=== PATIENT | female | born 1965 | race Caucasian/White ===

== ENCOUNTER 2017-08-28 08:33 | Outpatient (CLI) | payer BC, OTHER ==
--- NOTE | 2017-08-28 10:09 | ULT ---
RIGHT UPPER QUADRANT ULTRASOUND: HISTORY: Right upper quadrant pain. FINDINGS: There are cysts in the right lobe of the liver, measuring 1.3 and 1.9 cm, respectively. No intrahepa tic ductal dilatation is seen. No gallstones, gallbladder wall thickening, or pericholecystic fluid is identified. The common duct measures 4 mm in diameter. The right kidney and the visualized porti ons of the pancreas are unremarkable. No free fluid is noted in the [place] pouch. IMPRESSION: 1. Hepatic cysts. 2. No evidence of cholelithiasis. POS: [facility]
== END 2017-08-28 08:34 | disposition home or self-care (01) ==
LOC: ULT 08:33
PROVIDERS: ATTEND Internal Medicine Gastroenterology
DX: K76.89 Other specified diseases of liver (principal)
CPT/HCPCS: 76705

== ENCOUNTER 2017-10-15 08:36 | Outpatient (CLI) | payer BC ==
--- NOTE | 2017-10-15 13:20 | NM ---
HEPATOBILIARY SCAN: Date: 10/15/17 COMPARISON: None. HISTORY: Epigastric pain. TECHNIQUE: Following the intravenous administration of 4.7 mCi technetium-99m labeled mebrofenin, anterior plana r imaging is obtained over 60 minutes. Upon visualization of the gallbladder, the patient ingested 8 oz of Ensure to calculate the ejection fraction of the gallbladder. FINDINGS: There is prompt radiotracer activity within the liver on post injection imaging. Biliary activity is seen by 10-15 minutes. Gallbladder filling is seen by 25 minutes. Small bowel activity is seen by 15 minutes. Gallbladder ejection fraction is calculated at 59%. IMPRESSION: Scintigraphic evidence of cystic duct patency. Normal gallbladder ejection fraction. POS: [facility]
== END 2017-10-15 08:37 | disposition home or self-care (01) ==
LOC: NM 08:36
PROVIDERS: ATTEND Internal Medicine Gastroenterology
DX: R10.13 Epigastric pain (principal)
CPT/HCPCS: 78227; A9537